=== PATIENT | female | born 1995 ===

== ENCOUNTER 2023-12-11 13:52 | Emergency (ER) | payer BC ==
[2023-12-11] MEDS: Lidocaine 1% 5 ML VIAL INJECT ONE (14:55)
[2023-12-11] MEDS ORDERED: Bacitracin Oint 1 GM U/D Packet TOP ONE (15:00)
[2023-12-11] MEDS: Diphtheria,Pertussis(Acell),Tetanus Vaccine 0.5 ML Syringe IM ONE (15:21)
[2023-12-11] MEDS: Bacitracin Oint 1 GM U/D Packet ONE (17:44)
== END 2023-12-11 15:30 | disposition home or self-care (01) ==
LOC: LL.ED 13:52
DX: S81.851A Open bite, right lower leg, initial encounter (principal); Z23 Encounter for immunization; Z88.8 Allergy status to other drugs, medicaments and biological substances; Z79.899 Other long term (current) drug therapy; W54.0XXA Bitten by dog, initial encounter
CPT/HCPCS: 12001; 90471; 90715; 99283; 99283-25; J3490